=== PATIENT | male | born 1985 | race Caucasian/White ===

== ENCOUNTER → 2016-08-09 | Outpatient (CLI) | payer BC ==
[~2016-08-09] MED LIST: KEFLEX500 MG PO; NO MEDICATIONS; PERCOCET PO; PERCOCET5/325 PO
--- NOTE | ~2016-08-09 | NM22 ---
[facility] A Service of [facility] & [facility] RADIOLOGY TEXT RESULTS PATIENT: LYNN DAVIS JR LOCATION: [facility] : 87 UNIT #: [id number] AGE: [address]: Oscar De Leon MD SEX: M ORDER DR: [id number] [facility] [address] [place], [place] [address] [id number] O MR#: [id number] Acc #: [id number] NAME: LYNN DAVIS : 1985 SEX: M STUDY DATE/TIME: 08/09/2016 9:43 UNIT: [facility] ROOM: STUDY DESCRIPTION: NM Hepatobiliary W GB Pharm Attending Physician: Oscar De Leon M.D. Referring Physician: Oscar De Leon M.D. Ordering Physician: Oscar De Leon M.D. Primary Care Physician: Oscar De Leon M.D. MEDICAL IMAGING REPORT This report is preliminary unless electronic signature is present EXAM HIDA scan with Kinevac CCK 08/09/2016 HISTORY Right upper quadrant abdominal pain radiating between shoulder blades for 3 weeks with diarrhea, loss of appetite and early satiety. Pressure right upper quadrant. FINDINGS The patient received an intravenous injection of 5.59 mCi of technetium 99m tagged Choletec for hepatobiliary imaging. 1 hour following injection of the radiopharmaceutical the patient received an intravenous injection of 2.5 mcg of Kinevac. There is homogeneous distribution of the radiotracer throughout the liver. Gallbladder activity was seen by 15 minutes postinjection of the radiopharmaceutical. Following Kinevac injection the gallbladder ejection fraction was 92.9% (normal is greater than 30%). IMPRESSION Normal HIDA scan with gallbladder ejection fraction of 92.9%. Dictated by... Pradip Santana M.D. THIS IS AN ELECTRONICALLY VERIFIED REPORT Pradip Santana M.D. at 08/10/2016 8:11 AM KRT/stacy TD: 08/09/2016 12:36 JOB #: [id number] MEDICAL IMAGING REPORT Page 1 of 1 COPY
== END | disposition home or self-care (01) ==
LOC: CNUC 08:58
DX: R10.11 Right upper quadrant pain (principal)
CPT/HCPCS: 78227; A9537; J2805